=== PATIENT | female | born 1935 | race Caucasian/White ===

== ENCOUNTER → 2019-03-01 08:08 | Outpatient (CLI) | payer MEDICARE, BC, SELFPAY ==
--- NOTE | 2019-03-01 14:27 | NEURO ---
NCS and/or EMG Patient Report Ordering Doctor: Santos Villarreal DATE OF SERVICE: 03/01/19 Elie Maier is an 83-year-old female who presents for elective diagnostic testing the left upper limb. She reports numbness and tingling in the left hand, progressively worsening over the past 2 years. Electrodiagnostic findings: The left median motor nerve demonstrates prolonged distal latency with reduced amplitude and normal conduction velocity. Normal left ulnar motor response. Normal left median and ulnar F waves. Prolonged left median sensory latency at the wrist. Prolonged left median palmar latency. Normal left ulnar and radial sensory responses. Needle EMG, all muscles tested in the left upper limb showed no evidence of denervation with normal motor unit action potentials. Electrodiagnostic impression: This is an abnormal study in the left upper limb. 1. Electrodiagnostic findings demonstrate left-sided median mononeuropathy. This is consistent with a moderate to advanced left carpal tunnel syndrome. 2. No electrodiagnostic evidence for cervical radiculopathy. With any further questions, please not hesitate contact me.
== END ==
PROVIDERS: Family Provider Family Medicine; PCP Family Medicine; Referring Provider Physician Assistant; Visit Provider Physician Assistant
DX: R20.2 Paresthesia of skin (principal)
CPT/HCPCS: 95886; 95909

== ENCOUNTER → 2019-03-20 12:19 | Outpatient (CLI) | payer MEDICARE, BC, SELFPAY ==
[2015-01-07 10:33] VITALS: BMI 22.6
--- NOTE | 2019-03-20 12:37 | EKG12_ITS ---
Test Reason : PREOP Blood Pressure : / mmHG Vent. Rate : 071 BPM Atrial Rate : 071 BPM P-R Int : 148 ms QRS Dur : 072 ms QT Int : 404 ms P-R-T Axes : 086 004 072 degrees QTc Int : 439 ms Sinus rhythm with Possible Premature atrial complexes with Aberrant conduction Otherwise normal ECG Confirmed by ALFRED RIOJAS, JODY ([id number]), avid editor ANTHONY SEARS ([id number]) on 03/21/2019 1:49:01 PM Referred By: Josemanuel Campbell Confirmed By:JODY SIMON MD
[2019-03-20 13:25] LABS: Hematocrit 42.3 % (37-47); Hemoglobin 13.9 g/dl (12.0-15.0); Mean Corp Hgb Conc 32.9 g/gl (32-36); Mean Corpuscular Hgb 28.8 pg (27.0-32.0); Mean Corpuscular Volume 87.6 fL (81-99); Mean Platelet Vol. 11.5 fl (6.2-12.0); Platelet Count 246 K/mm3 (150-450); RBC Distribution Width CV 14.3 % (11.6-14.6); RBC Distribution Width SD 45.6 fl (35.1-43.9); Red Blood Count 4.83 M/mm3 (4.2-5.4); White Blood Count 6.1 K/mm3 (4.4-11.0)
[2019-03-20 13:26] LABS: Scan Indicated on CBC? Y/N NO
[2019-03-20 13:36] LABS: Anion Gap 8 (5-15); BUN 11 mg/dL (7-18); BUN/Creat Ratio 13.3 RATIO (10-20); Calcium,Total 8.9 mg/dL (8.5-10.1); Chloride 107 mmol/L (98-107); Creatinine, Serum 0.83 mg/dL (0.55-1.02); EST Glomerular Filtration Rate 70 mL/min (>60); Est Glom Filt Rate - Afr Amer 85 mL/min (>60); Glucose 87 mg/dL (74-106); Potassium 3.9 mmol/L (3.5-5.1); Sodium Level 140 mmol/L (136-145)
== END ==
PROVIDERS: Physician Assistant Surgical; Family Provider Family Medicine; PCP Family Medicine; Referring Provider Orthopaedic Surgery; Visit Provider Orthopaedic Surgery
DX: Z01.818 Encounter for other preprocedural examination (principal)
CPT/HCPCS: 36415; 80048; 85027; 93005

== ENCOUNTER 2024-02-19 22:15 | Emergency (ER) | payer MEDICARE, BC, SELFPAY ==
[2024-02-19 22:17] VITALS: BP 161/86; PULSE 87; RESP 16; TEMP 37.2; O2SAT 94; BMI 24.3
[2024-02-19 22:19] VITALS: BP 169/81; PULSE 76; RESP 20; TEMP 37.2; O2SAT 93
--- NOTE | 2024-02-19 22:27 | ED.VIS.FEGU ---
HPI HPI - Female History of Present Illness Chief Complaint: Complaint PFSH PFSH Home Medications ?Medication ?Instructions ?Recorded ?Last Taken ?Type lorazepam 0.5 mg tablet 0.5 mg PO BID PRN PRN Anxiety 12/25/14 01/07/15 08:00 History aspirin 325 mg tablet,delayed 325 mg PO BIDCM ##60 01/09/15 Unknown Rx release hydrocodone-acetaminophen 5-325mg 1 - 2 tab PO Q6H PRN PRN Mild-Mod 01/09/15 Unknown Rx 5mg-325mg Pain (1-01/20) ##90 ciprofloxacin HCl 500 mg tablet 500 mg PO BID #14 TABLETS 02/20/24 Unknown Rx Allergy/AdvReac Type Severity Reaction Status Date / Time No Known Allergies Allergy Verified 02/19/24 22:19 Social History Smoking Status: Never smoker EXAM Physical Exam Const Vital Signs: 02/19/24 22:17 02/19/24 22:19 02/19/24 23:19 Temperature 99.0 F 98.9 F 99 F Temperature Source Oral Oral Oral Pulse Rate 87 76 77 Respiratory Rate 16 20 H 16 Blood Pressure 161/86 H 169/81 H 171/72 H Blood Pressure Mean 111 110 105 Pulse Ox 94 93 98 Oxygen Delivery Method Room Air Room Air Room Air 02/20/24 00:00 Temperature 98 F Temperature Source Oral Pulse Rate 86 Respiratory Rate 16 Blood Pressure 168/84 H Blood Pressure Mean 112 Pulse Ox 97 Oxygen Delivery Method Room Air [facility] MDM MDM Narrative Medical decision making narrative: HISTORY OF PRESENT ILLNESS: 88-year-old female presents with concern for UTI. She states she has been on 2 rounds of antibiotics and has become worse in terms of her symptomatology. No she is been shaky and feeling weak. No dysuria, frequency and urgency of urination consistent with prior UTIs. Notes some shortness of breath with exertion as well. No chest pain. REVIEW OF SYSTEMS: Pertinent positives: Dysuria, frequency, urgency, shortness of breath Pertinent negatives: Leg swelling, bleeding diathesis, syncope, focal weakness PHYSICAL EXAM: Nursing triage notes reviewed, Vital signs reviewed Constitutional: please see mdm HENT: MMM Eyes: Pupils equal round and reactive to light, Extraocular muscles intact Neck: No stridor, no JVD, full neck ROM Lungs: Clear to auscultation, No wheezing or rales. No increased work of breathing, no conversational dyspnea, no accessory muscle use, no nasal flaring. No respiratory distress noted Heart: Regular rate and rhythm, No murmurs, No rubs and No gallops, 2+ distal pulses (radial, femoral, posterior tibial) in all extremities Abdomen: Soft, there is no tenderness, rigidity, rebound or guarding, no obvious peritoneal signs, no palpable pulsatile abdominal masses, no auscultated abdominal bruit : No CVAT Extremities: No edema Neuro: No focal neurological deficits, cranial nerves II through XII intact, 5/5 strength in all extremities. Intact sensation to light touch in all extremities, 2+ reflexes bilateral patella tendons. Normal gait. No ataxia. Skin: No rash or lesions noted MEDICAL DECISION MAKING: Chief Complaint: UTI External records reviewed: No recent ED visits or hospitalizations Factors affecting care: Frequent UTIs Social determinants of health: none History obtained from others: Patient's family Consults: none MDM Narrative: Patient was hemodynamically stable, afebrile and nontoxic-appearing. Exam with clear lungs, benign abdominal exam. I considered the following differential diagnosis: UTI, urosepsis, ACS, arrhythmia, pneumonia, electrolyte disturbance, anemia I obtained a broad lab and imaging workup to further elucidate etiology patient complaints ALL IMAGES (IF OBTAINED) HAVE BEEN PERSONALLY REVIEWED AND INTERPRETED BY MYSELF. Lactate is wnl indicating no end-organ hypoperfusion and/or hypoxia. Urinalysis shows no evidence of urinary inflammation suggestive of UTI High-sensitivity troponin is negative, no evidence of myocardial ischemia Lipase is wnl indicating no pancreatic inflammation. EKG with normal sinus rhythm, normal axis, normal intervals, no STEMI Chest x-ray was reviewed myself shows evidence of a large hiatal hernia, no pneumonia pneumothorax or signs of CHF CMP with mild hyponatremia, no other electrolyte normalities, no anion gap to suggest endorgan hypoperfusion, no acute kidney injury The synthesis of the patient's history, physical exam, labs images suggest no evidence of UTI or sepsis. Incidental finding of hiatal hernia was discussed with the patient. Per radiology report patient will require additional imaging. Patient was ambulated here she is not hypoxic there is no emergent indication for advanced imaging at this time. Discussed findings with patient who agreed and wanted to follow with her primary care physician for outpatient imaging and possible surgical consultation at a later date. The patient and/or family, caregivers express understanding. The patient and/or family, caregivers agrees with the plan. Shared decision making: I will have a discussion with the patient and or visitors regarding risk/benefits of further testing or admission. They will be made aware of of the risk/benefits inherent in this decision they will be given the opportunity to voice understanding. Total critical care time today provided was at least 0 minutes. This excludes separately billable procedures. Critical care time (if documented) is secondary to the patient having high probability of clinically significant/life threatening deterioration in the patient's condition which required my urgent intervention. Impression: 1. Dysuria 2. Hyponatremia 3. Hiatal hernia 4. Dyspnea Dispo: Discharge home This note was generated with [employer] dictation software. It may contain incorrect words, spelling, and punctuation that were not noted in review of the chart prior to signing. Lab Data Labs: Laboratory Results - last 24 hr 02/19/24 02/19/24 22:28 22:49 WBC 7.1 RBC 4.39 Hgb 12.6 Hct 37.3 MCV 85.0 MCH 28.7 MCHC 33.8 RDW Std Deviation 40.6 RDW Coeff of Sarai 13.1 Plt Count 340 MPV 10.6 Immature Gran % (Auto) 0.600 Neut % (Auto) 68.3 Lymph % (Auto) 18.1 L [place] % (Auto) 12.0 H Eos % (Auto) 0.3 Baso % (Auto) 0.7 Absolute Neuts (auto) 4.8 Absolute Lymphs (auto) 1.28 Nucleated RBC % 0 Sodium 130 L Potassium 3.5 Chloride 99 Carbon Dioxide 23.0 Anion Gap 8 BUN 9 Creatinine 0.81 Estim Creat Clear Calc 35.15 Est GFR (MDRD) Af Amer 86 Est GFR (MDRD) Non-Af 71 BUN/Creatinine Ratio 11.1 Glucose 119 H Lactic Acid 1.7 Calcium 9.2 Total Bilirubin 0.30 AST 14 L ALT 16 Alkaline Phosphatase 62 Troponin I High Sens 3 Total Protein 6.4 Albumin 3.3 Globulin 3.1 Albumin/Globulin Ratio 1.1 Lipase 37 Urine Color Yellow Urine Clarity Clear Urine pH 7.0 Ur Specific [place] 1.005 Urine Protein Negative Urine Glucose (UA) Normal Urine Ketones Negative Urine Occult Blood Negative Urine Nitrite Negative Urine Bilirubin Negative Urine Urobilinogen Normal Ur Leukocyte Esterase Negative Urine RBC 0 SEEN Urine WBC 0 SEEN Ur Squamous Epith Cells 0 SEEN Urine Bacteria 0 SEEN Urine Mucus 0 SEEN Radiography Diagnostic Testing: Clinical Impression(s) from Imaging Studies Chest X-Ray 02/19/24 23:15 IMPRESSION: 1. Large hiatal hernia with stomach and multiple additional bowel loops. Significantly larger and more complex hernia than in 2003. Not a typical appearance of obstructing gastric volvulus, the moderate gastric air bubble is not significantly distended. 2. CT is suggested for further evaluation to evaluate the herniated anatomic structures and for any evidence of ischemia. Electronically Signed: Anali Theodore MD at 23:45 EDT , ADDENDUM: 02/20/24 0000 IMPRESSION: 1. Large hiatal hernia with stomach and multiple additional bowel loops. Significantly larger and more complex hernia than in 2003. Not a typical appearance of obstructing gastric volvulus, the moderate gastric air bubble is not significantly distended. 2. CT is suggested for further evaluation to evaluate the herniated anatomic structures and for any evidence of ischemia. N.B. : The above Results were Read Back by Anali Theodore MD to Yaya Valdes DO, and understanding confirmed on 02/19/2024 23:53:10 (ET). Electronically Signed: Anali Theodore MD at 23:45 EDT , Discharge Plan Triage Chief Complaint: Complaint ED Provider: Yaya Valdes Dx/Rx/DC Orders Instructions: Sepsis, ED Hiatal Hernia Prescriptions: New ciprofloxacin HCl 500 mg tablet 500 mg PO BID Qty: 14 0RF No Action lorazepam 0.5 MG tablet 0.5 mg PO BID PRN PRN (Reason: Anxiety) Patient Comments: ANXIETY hydrocodone-acetaminophen 1 TABLET tablet 1 - 2 tab PO Q6H PRN PRN (Reason: Mild-Mod Pain (1-5/10)) Qty: 90 0RF Patient Comments: PAIN MEDICATION aspirin 325 MG tablet 325 mg PO BIDCM Qty: 60 0RF Patient Comments: DVT PREVENTION Primary Care Provider: Esteban Baez Referrals: Esteban Baez MD [Primary Care Provider] - Activity Restrictions/Additional Instructions: Thank you for trusting us with your care today! Your urinalysis was negative for signs of inflammation or infection. We did find incidental finding of a hiatal hernia. Please call your primary care physician for further outpatient evaluation. Please take Tylenol (2 pills, 650 mg), ibuprofen (2 pills, 400 mg) every 6 hours as needed for pain and fever control. Please take ciprofloxacin as prescribed. Please stop taking Bactrim. Please return to the emergency department if your symptoms change or worsen. If you develop confusion, chest pain, shortness of breath, if you lose consciousness, if develop worsening symptoms including lower abdominal pain fever vomiting Please follow with your primary care physician for further outpatient evaluation and management. Print Language: American Disposition Disposition: Home, Self Care
[2024-02-19 22:44] LABS: Bacteria 0 SEEN /hpf (None Seen); Mucous, Urine 0 SEEN /hpf (<or=2+); Red Blood Cells-Urine 0 SEEN /hpf (0-5); Squamous Epithelial Cells - UA 0 SEEN /hpf (5-10); White Blood Cells 0 SEEN /hpf (0-5)
[2024-02-19 22:47] LABS: Color, Urine Yellow (Yellow); Glucose, Dipstick Normal (Normal); Ketone-Dipstick Negative (Negative); Leukocyte Esterase-Dipstick Negative /ul (Negative); Nitrite-Dipstick Negative (Negative); Occult Blood-Urine Negative /ul (Negative); Protein-Dipstick Negative (Negative); Specific Gravity, Urine 1.005 (1.002-1.030); Urine Bilirubin Dipstick Negative (Negative); Urine Clarity Clear (Clear); Urine Urobilinogen Normal (Normal)
--- NOTE | 2024-02-19 22:48 | EKG12_ITS ---
Test Reason : Blood Pressure : / mmHG Vent. Rate : 075 BPM Atrial Rate : 075 BPM P-R Int : 160 ms QRS Dur : 080 ms QT Int : 416 ms P-R-T Axes : -10 053 -27 degrees QTc Int : 464 ms Sinus rhythm with frequent Premature ventricular complexes Inferior infarct , age undetermined Abnormal ECG Confirmed by ALFRED RIOJAS, JODY ([id number]), film and video editor HERO WAN ([id number]) on 02/21/2024 10:46:40 AM Referred By: Confirmed By:JODY SIMON MD
[2024-02-19 23:01] LABS: Absolute Lymphocyte Count 1.28 X10^3/uL (0.83-4.51); Absolute Neutrophil Count 4.8 X10^3/uL (2.0-7.7); Basophil# 0.05 X10^3/uL; Basophil% 0.7 % (0-1); Eosinophil# 0.02 X10^3/uL; Eosinophils% 0.3 % (0-5); Hematocrit 37.3 % (37-47); Hemoglobin 12.6 g/dL (12.0-15.0); Lymphocyte # 1.28 X10^3/ul (0.83-4.51); Lymphocyte % 18.1 % (19-41); Mean Corp Hgb Conc 33.8 g/dL (32-36); Mean Corpuscular Hgb 28.7 pg (27.0-32.0); Mean Platelet Vol. 10.6 fl (6.2-12.0); Monocyte# 0.85 X10^3/uL; NRBC Flagged by Analyzer 0 % (0-5); Neutrophil # 4.83 X10^3/uL (2.7-7.7); Neutrophil % 68.3 % (47-70); Platelet Count 340 K/mm3 (150-450); RBC Distribution Width CV 13.1 % (11.6-14.6); RBC Distribution Width SD 40.6 fl (35.1-43.9); Red Blood Count 4.39 M/mm3 (4.2-5.4); White Blood Count 7.1 K/mm3 (4.4-11.0)
--- NOTE | 2024-02-19 23:15 | RAD_ITS ---
We are attempting to reach an attending provider to discuss findings. An addendum with communication details will be sent when the communication is complete. EXAM: XR CHEST, 1 VIEW CLINICAL INDICATION: SOB TECHNIQUE: Frontal view of the chest. COMPARISON: April 15, 2004. FINDINGS: LUNGS AND PLEURAL SPACES: Blunting of the right lateral costophrenic angle, presumed mild effusion. No pneumothorax. HEART: Upper limits of normal heart size. MEDIASTINUM: There is markedly increased apparent hiatal hernia with what appears to be stomach gas and additional gas in adjacent bowel and a roughly 16.1 cm x 15.2 cm presumed hernia sac. There was moderate hiatal hernia with air-fluid level measuring 2.2 cm x 9 cm on prior exam in 2003. BONES/JOINTS: Osteophytes projecting inferiorly at the glenohumeral joints and suspicion of superior subluxation of both humeral heads which may be positional or due to rotator cuff chronic tears. No acute fracture. SOFT TISSUES: Unremarkable. RAD/Chest 1 View (Portable) IMPRESSION: 1. Large hiatal hernia with stomach and multiple additional bowel loops. Significantly larger and more complex hernia than in 2004. Not a typical appearance of obstructing gastric volvulus, the moderate gastric air bubble is not significantly distended. 2. CT is suggested for further evaluation to evaluate the herniated anatomic structures and for any evidence of ischemia. Electronically Signed: Anali Theodore MD at 23:45 EDT ,
[2024-02-19 23:18] LABS: ALB/GLOB Ratio 1.1 RATIO (0.9-2.4); AST(SGOT) 14 U/L (15-37); Alanine Aminotransfer ALT/SGPT 16 U/L (13-56); Albumin, Serum 3.3 g/dL (3.2-5.0); Alkaline Phosphatase 62 U/L (45-117); Anion Gap 8 (5-15); BUN 9 mg/dL (7-18); BUN/Creat Ratio 11.1 RATIO (10-20); Calcium,Total 9.2 mg/dL (8.5-10.1); Chloride 99 mmol/L (98-107); Creatinine, Serum 0.81 mg/dL (0.55-1.02); EST Glomerular Filtration Rate 71 mL/min (>60); Est Glom Filt Rate - Afr Amer 86 mL/min (>60); Estimated Creatinine Clearance 35.15 ml/min; Globulin 3.1 g/dL (2.2-4.2); Glucose 119 mg/dL (74-106); Lipase 37 U/L (13-75); Potassium 3.5 mmol/L (3.5-5.1); Protein, Total 6.4 g/dL (6.4-8.2); Sodium Level 130 mmol/L (136-145); Troponin-I HS 3 pg/mL (3.0-54.0)
[2024-02-19 23:19] VITALS: BP 171/72; PULSE 77; RESP 16; TEMP 37.2; O2SAT 98
[2024-02-19 23:26] LABS: Lactic Acid 1.7 mmol/L (0.4-1.9)
[2024-02-19 23:55] VITALS: O2SAT 96
[2024-02-20] VITALS: BP 168/84; PULSE 86; RESP 16; TEMP 36.6; O2SAT 97
[2024-02-20 01:00] VITALS: BP 154/69; PULSE 82; RESP 16; TEMP 36.6; O2SAT 95
== END 2024-02-20 01:01 | disposition home or self-care (01) ==
PROVIDERS: Emergency Provider Emergency Medicine; PCP Family Medicine; Visit Provider Emergency Medicine
DX: R30.0 Dysuria (principal); K44.9 Diaphragmatic hernia without obstruction or gangrene; E87.1 Hypo-osmolality and hyponatremia; R06.00 Dyspnea, unspecified; Z79.82 Long term (current) use of aspirin; R35.0 Frequency of micturition; R39.15 Urgency of urination
CPT/HCPCS: 71045; 80053; 81001; 83605; 83690; 84484; 85025; 87086; 93005; 99284; A4216

== ENCOUNTER 2024-12-27 17:58 | Emergency (ER) | payer MEDICARE, BC, SELFPAY ==
[2024-12-27 17:59] VITALS: BP 138/100; PULSE 96; RESP 18; TEMP 36.8; O2SAT 95
--- NOTE | 2024-12-27 18:32 | EDS_ITS ---
HPI History of Present Illness Chief Complaint: Lower Extremity Injury Informant: patient and family Onset/Context/Timing Onset: Yesterday Context: Gradual Onset Timing: Continuous Quality: Sharp Location: Right hip Worsened by: Weightbearing, getting off of the toilet Relieved by: Rest Narrative Narrative: Patient presents with right hip pain and weakness that became worse yesterday. Family states patient has been having difficulty standing and walking. Patient complains of pain in her right hip. Patient states she is getting over bronchitis. Patient states she still has some cough and shortness of breath. Family states patient does have a fever of 101 that is worse at nighttime. Patient states she fell 2 weeks ago but was able to ambulate after the fall. Family states that since yesterday her right hip pain has gotten worse. Patient admits to decreased appetite. [facility] Medical History (Updated 12/27/24 @ 21:[address] Luis Caballero DO) Osteoarthritis Bladder prolapse Hiatal hernia Weakness Home Medications ?Medication ?Instructions ?Recorded ?Last Taken ?Type amoxicillin 875 mg-potassium 1 tab PO Q12.TCU 12/27/24 Unknown History clavulanate 125 mg tablet benzonatate 100 mg capsule 100 mg PO TID 12/27/24 Unkn own History escitalopram oxalate 10 mg tablet 10 mg PO DAILY 12/2712/27/24 History escitalopram oxalate 20 mg tablet 20 mg PO DAILY 12/27 Unknown History Allergy/AdvReac Type Severity Reaction Status Date / Time No Known Allergies Allergy Verified 12/27/24 18:04 Surgical History (Updated 12/27/24 @ 18:[address] 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 Social History Smoking Status: Never smoker ROS ROS ED Constitutional Constitutional ED: Reports fever(s); Denies chills Eyes Eyes: Denies blurry vision or change in vision ENT ENT ED: Reports rhinorrhea; Denies sore throat Cardiovascular Cardiovascular: Denies chest pain or palpitations Respiratory/Chest Respiratory/Chest: Reports cough; Denies dyspnea Gastrointestinal Gastrointestinal: Reports nausea; Denies vomiting Genitourinary Genitourinary ED: Denies dysuria or hematuria Musculoskeletal Musculoskeletal: Reports back pain; Denies neck pain Integumentary Denies abscess or rash Neurologic Neurologic: Reports weakness; Denies headache(s) Allergic/Immunologic Allergic/Immunologic ED: Denies mouth swelling or urticaria EXAM Physical Exam Const Vital Signs: 12/27/24 17:59 12/27/24 18:21 12/27/24 19:59 Temperature 98.2 F Temperature Source Oral Pulse Rate 96 86 Respiratory Rate 18 18 Respiratory Effort Normal Non-Labored Respiratory Depth Normal Respiratory Pattern Normal Blood Pressure 138/100 H 97/65 Blood Pressure Mean 112 75 Pulse Ox 95 97 Oxygen Delivery Method Room Air Room Air 12/27/24 21:00 Temperature Temperature Source Pulse Rate 87 Respiratory Rate 14 Respiratory Effort Respiratory Depth Respiratory Pattern Blood Pressure 106/69 Blood Pressure Mean 81 Pulse Ox 96 Oxygen Delivery Method Room Air Positive well nourished and well developed General Appearance ED: well developed and NAD HEENT Reports moist mucous membranes Neck supple and no JVD Resp normal respiratory effort and clear to auscultation bilaterally Cardio regular rate and regular rhythm GI non-tender and non-distended Palpation: soft Extremity Extremity Narrative: There is mild tenderness over the anterior and lateral aspects of the right hip. There is no bony crepitus or step-off. There is no deformity. There is no shortening or external rotation. Pedal pulses are equal bilaterally. Sensation was intact to light touch bilaterally in the lower extremities. Strength is 5/5 bilaterally in the lower extremities. Neuro oriented x3, CN's II-XII intact bilaterally and no sensory deficits noted Sensorium / Orientation: alert Motor Exam: strength 5/5 throughout MDM MDM MDM Narrative Medical decision making narrative: Differential diagnosis includes pneumonia, bronchitis, urinary tract infection, viral illness, dehydration, electrolyte abnormality, hip fracture, contusion, and sprain. Chest x-ray will be obtained to assess for pneumonia and bronchitis. EKG will be obtained to assess for cardiac dysrhythmia and cardiac ischemia. X-ray of the right hip will be obtained to assess for hip fracture. CBC will be obtained to assess for leukocytosis and anemia. Basic metabolic profile will be obtained to assess for electrolyte abnormality and renal function. PT with INR PTT will be obtained to assess for coagulopathy. High- sensitivity troponin will be obtained to assess for cardiac ischemia. Urinalysis will be obtained to assess for urinary tract infection and hematuria. COVID-19, influenza, and RSV PCR will be obtained to assess for viral illness. Lab Data Attestation: I reviewed the patient's lab results. Lab results narrative: CBC was reviewed and was within normal limits. Basic metabolic profile was reviewed. Sodium was low at 126, potassium was 3.2, chloride was 89. Creatinine was slightly low at 0.56. Glucose was slightly elevated at 107. PT with INR and PTT were reviewed and were within normal limits. Initial high- sensitivity troponin was reviewed and was 18. Urinalysis was reviewed. Emir kocyte esterase was 25. Occult blood was 25. There are 0-5 white blood cells and 0-5 red blood cells. There is no bacteria noted. 2-hour repeat high- sensitivity troponin was reviewed and was 19. COVID-19 PCR was reviewed and was negative. Influenza PCR was reviewed and was negative for influenza A and influenza B. RSV PCR was reviewed and was negative. Labs: Laboratory Results - last 24 hr 12/27/24 12/27/24 12/27/24 18:18 19:00 20:44 WBC 8.9 RBC 4.25 Hgb 12.6 Hct 35.8 L MCV 84.2 MCH 29.6 MCHC 35.2 RDW Std Deviation 38.9 RDW Coeff of Sarai 12.7 Plt Count 353 MPV 11.0 Immature Gran % (Auto) 0.700 Neut % (Auto) 70.6 H Lymph % (Auto) 14.9 L [place] % (Auto) 12.2 H Eos % (Auto) 0.8 Baso % (Auto) 0.8 Absolute Neuts (auto) 6.3 Absolute Lymphs (auto) 1.33 Nucleated RBC % 0 PT 13.4 INR 1.0 APTT 27.4 Sodium 126 L Potassium 3.2 L Chloride 89 L Carbon Dioxide 23.3 Anion Gap 14 BUN 8 Creatinine 0.56 L Estim Creat Clear Calc 34.91 L Est GFR (MDRD) Non-Af 88 BUN/Creatinine Ratio 14.9 Glucose 107 H Calcium 8.7 Troponin T High Sens 18 H Troponin T Hi Sens 2 Hr 19 H Urine Color Yellow Urine Clarity Clear Urine pH 6.5 Ur Specific [place] 1.015 Urine Protein 30 H Urine Glucose (UA) Normal Urine Ketones 50 H Urine Occult Blood 25 H Urine Nitrite Negative Urine Bilirubin Negative Urine Urobilinogen Normal Ur Leukocyte Esterase 25 H Urine RBC 0-5 SEEN Urine WBC 0-5 SEEN Ur Squamous Epith Cells 0-5 SEEN Urine Bacteria 0 SEEN Urine Mucus 0 SEEN Radiography Diagnostic Testing: Clinical Impression(s) from Imaging Studies Chest X-Ray 12/27/24 18:33 IMPRESSION: No active disease. Large hiatal hernia. Cardiomegaly. Reading Location: [facility] Hip/Pelvis X-Ray 12/27/24 18:34 IMPRESSION: NEGATIVE SINGLE VIEW HIP Reading Location: [facility] X-rays of the left hip were obtained. There are 3 views. On my independent interpretation, there is no acute fracture. There are some degenerative changes noted. Radiologist also interpreted the x-rays and agrees. PA and lateral chest x-ray was obtained. There are 2 views. On my independent interpretation, lung mancini show right basilar atelectasis. There is a large hiatal hernia and cardiomegaly. Bony thorax is normal. There is no acute process noted. Radiologist also interpreted the x-ray and agrees. EKG Initial EKG: Attestation: I personally reviewed and interpreted this EKG as follows: Interpretation: Sinus Rhythm (With occasional PACs with a rate of 79) and Non-Specific ST Changes Comments: EKG was obtained. On my independent interpretation, it showed a normal sinus rhythm with occasional PACs with a rate of 79. AR interval, QRS interval, and QTc intervals were all normal. Foster was normal. There are nonspecific ST-T wave changes. Prior EKG tracings: available for review Prior: Unchanged (02/19/2024) Treatment and Re-Evaluation :: Patient was given IV fluids. Patient was given oral potassium. Patient was feeling better on reevaluation. Patient was able to ambulate with with minimal difficulty. Family is agreeable to patient's request of going home. Patient and family were instructed to follow-up with her primary care physician in 3 to 5 days. Patient and family were instructed to return if worse in any way. Patient and family understand and are agreeable with the plan. All questions were answered. Discharge Plan Triage Chief Complaint: Lower Extremity Injury Other Complaint: Complaint Shortness of Breath ED Provider: Luis Caballero Dx/Rx/DC Orders Clinical Impression: Acute pain of right hip, Osteoarthritis, Hyponatremia Instructions: ED Hip Strain, ED Osteoarthritis Prescriptions: No Action escitalopram oxalate 10 mg tablet 10 mg PO DAILY escitalopram oxalate 20 mg tablet 20 mg PO DAILY benzonatate 100 mg capsule 100 mg PO TID amoxicillin-pot clavulanate 875-125 mg tablet 1 tab PO Q12.TCU Primary Care Provider: Esteban Baez Referrals: Esteban Baez MD [Primary Care Provider] - 3-5 Days Print Language: Syriac Disposition Disposition: Home, Self Care
--- NOTE | 2024-12-27 18:33 | EKG12_ITS ---
Test Reason : DYSRHYTHMIA Blood Pressure : */* mmHG Vent. Rate : 79 BPM Atrial Rate : 79 BPM P-R Int : 152 ms QRS Dur : 82 ms QT Int : 434 ms P-R-T Axes : 82 10 83 degrees QTcB Int : 497 ms Sinus rhythm with Premature supraventricular complexes Nonspecific T wave abnormality Abnormal ECG Confirmed by Josemanuel Joiner ([id number]), book editor CHARITY BERUMEN ([id number]) on 12/29/2024 7:00:16 AM Referred By: Luis Caballero Confirmed By: Josemanuel Joiner
--- NOTE | 2024-12-27 18:33 | RAD_ITS ---
PROCEDURE: CHEST PA AND LATERAL 12/27/2024 REASON FOR EXAM: COUGH TECHNIQUE: Frontal and lateral views of the chest. FINDINGS: Hardware: None Heart: Heart size is mildly enlarged. Mediastinum: Calcified plaque in the aortic arch. Large hiatal hernia extending into the right hemithorax. Lungs: The lungs are clear. Bones: The bones are unremarkable. RAD/Chest PA and Lateral IMPRESSION: No active disease. Large hiatal hernia. Cardiomegaly. Reading Location: [id number]
--- NOTE | 2024-12-27 18:34 | RAD_ITS ---
PROCEDURE: HIP, UNI W/ PELVIS 2-3 VIEWS 12/27/2024 REASON FOR EXAM: INJURY/PAIN TECHNIQUE: One (1) view of the right hip FINDINGS: Bones: No acute fracture or dislocation. Joints: Normal alignment. Soft tissues: Soft tissues are unremarkable. Other: RAD/HIP, UNI W/ Pelvis 2-3 Views IMPRESSION: NEGATIVE SINGLE VIEW HIP Reading Location: [id number]
[2024-12-27] MEDS: 0.9% Normal Saline (1000mL) 1,000 ML 1000 ML IV (18:44)
[2024-12-27 18:45] VITALS: BMI 23.3
[2024-12-27 18:50] LABS: Absolute Lymphocyte Count 1.33 X10^3/uL (0.83-4.51); Absolute Neutrophil Count 6.3 X10^3/uL (2.0-7.7); Basophil# 0.07 X10^3/uL; Basophil% 0.8 % (0-1); Eosinophil# 0.07 X10^3/uL; Eosinophils% 0.8 % (0-5); Hematocrit 35.8 % (37-47); Hemoglobin 12.6 g/dL (12.0-15.0); Lymphocyte # 1.33 X10^3/ul (0.83-4.51); Lymphocyte % 14.9 % (19-41); Mean Corp Hgb Conc 35.2 g/dL (32-36); Mean Corpuscular Hgb 29.6 pg (27.0-32.0); Mean Corpuscular Volume 84.2 fL (81-99); Monocyte# 1.09 X10^3/uL; Monocyte% 12.2 % (0-10); NRBC Flagged by Analyzer 0 % (0-5); Neutrophil # 6.28 X10^3/uL (2.7-7.7); Neutrophil % 70.6 % (47-70); Platelet Count 353 K/mm3 (150-450); RBC Distribution Width CV 12.7 % (11.6-14.6); RBC Distribution Width SD 38.9 fl (35.1-43.9); Red Blood Count 4.25 M/mm3 (4.2-5.4); White Blood Count 8.9 K/mm3 (4.4-11.0)
[2024-12-27 19:11] LABS: Anion Gap 14 (5-15); BUN 8 mg/dL (4-19); BUN/Creat Ratio 14.9 RATIO (10-20); Calcium,Total 8.7 mg/dL (7.6-11.0); Carbon Dioxide 23.3 mmol/L (21.0-32.0); Chloride 89 mmol/L (98-108); Creatinine, Serum 0.56 mg/dL (0.70-1.20); EST Glomerular Filtration Rate 88 (>60); Estimated Creatinine Clearance 34.91 ml/min (50-250); Glucose 107 mg/dL (70-99); Potassium 3.2 mmol/L (3.3-5.1); Sodium Level 126 mmol/L (133-145)
[2024-12-27 19:13] LABS: Bacteria 0 SEEN /hpf (None Seen); Mucous, Urine 0 SEEN /hpf (<or=2+)
[2024-12-27 19:19] LABS: Prothrombin Time (Protime)PT. 13.4 SECONDS (11.7-14.9)
[2024-12-27 19:20] LABS: Partial Thromboplast Time 27.4 Seconds (24.1-36.2)
[2024-12-27] MEDS: Potassium Chloride Oral Tablet 20 MEQ 40 MEQ PO (19:28)
[2024-12-27 19:33] LABS: Troponin T High Sensitivity 18 ng/L (<=14)
[2024-12-27 19:35] LABS: Color, Urine Yellow (Yellow); Glucose, Dipstick Normal (Normal); Ketone-Dipstick 50 mg/dl (Negative); Leukocyte Esterase-Dipstick 25 /ul (Negative); Nitrite-Dipstick Negative (Negative); Occult Blood-Urine 25 /ul (Negative); Protein-Dipstick 30 mg/dl (Negative); Specific Gravity, Urine 1.015 (1.002-1.030); Urine Bilirubin Dipstick Negative (Negative); Urine Clarity Clear (Clear); Urine Urobilinogen Normal (Normal); Urine pH 6.5 (5.0 - 8.0)
[2024-12-27 19:59] VITALS: BP 97/65; PULSE 86; RESP 18; O2SAT 97
[2024-12-27 20:20] LABS: Red Blood Cells-Urine 0-5 SEEN /hpf (0-5); Squamous Epithelial Cells - UA 0-5 SEEN /hpf (5-10); White Blood Cells 0-5 SEEN /hpf (0-5)
[2024-12-27 21:00] VITALS: BP 106/69; PULSE 87; RESP 14; O2SAT 96
[2024-12-27 21:31] LABS: Troponin T High Sens 2 HR 19 ng/L (<=14)
[2024-12-27 22:18] VITALS: BP 155/87; PULSE 77; RESP 18; TEMP 36.6; O2SAT 98
== END 2024-12-27 22:19 | disposition home or self-care (01) ==
PROVIDERS: Emergency Provider Emergency Medicine; PCP Family Medicine; Referring Provider Emergency Medicine; Visit Provider Emergency Medicine
DX: M16.11 Unilateral primary osteoarthritis, right hip (principal); E87.1 Hypo-osmolality and hyponatremia; R06.02 Shortness of breath; Z96.642 Presence of left artificial hip joint
CPT/HCPCS: 71046; 73502; 80048; 81001; 84484; 85025; 85610; 85730; 87631; 93005; 96360; 99285; P9612; A4216

== ENCOUNTER → 2025-03-09 | Outpatient (CLI) | payer MEDICARE, BC, SELFPAY ==
--- NOTE | 2025-03-09 10:00 | RAD_ITS ---
PROCEDURE: UPPER GI DUAL CONTRAST 03/09/2025 REASON FOR EXAM: HIATAL HERNIA, GERD TECHNIQUE: Double contrast upper GI series COMPARISON: Chest x-ray of 12/27/2024. FINDINGS: Recurrent small volume aspiration was seen, with associated significant cough response A very large hiatal hernia is seen, encompassing nearly the entire stomach. Limited imaging of the stomach and duodenum is seen, due to the patient's inability to maintain the ingested gas. No significant gastric or duodenal abnormality is otherwise noted. The duodenum shows no area of persistent narrowing. No mucosal changes are seen. Widely patent esophagogastric junction is seen. During the limited time of imaging, gastroesophageal reflux was not noted. Prominent calcification of the aortic arch is noted. RAD/Upper GI Dual Contrast IMPRESSION: 1. Very large hiatal hernia. 2. Recurrent small volume aspiration, significant cough response noted 3. Additional findings as noted. Reading Location: [place] [id number]
== END | disposition home or self-care (01) ==
LOC: RAD 09:41
PROVIDERS: PCP Family Medicine; Referring Provider Nurse Practitioner Acute Care; Visit Provider Nurse Practitioner Acute Care
DX: K21.9 Gastro-esophageal reflux disease without esophagitis (principal); K44.9 Diaphragmatic hernia without obstruction or gangrene
CPT/HCPCS: 74246